=== PATIENT | female | born 1995 | race Caucasian/White ===

== ENCOUNTER 2024-01-08 09:33 | Outpatient (RCR) | payer OTHER, SELFPAY ==
[2024-01-08] MEDS: RHO(D) IMMUNE GLOBULIN 300 MCG/2 ML SYRINGE IM (13:50)
== END 2024-04-07 23:59 | disposition home or self-care (01) ==
LOC: ANHLAB 09:33
PROVIDERS: PCP Pediatrics; Visit Provider Obstetrics & Gynecology
DX: Z29.13 Encounter for prophylactic Rho(D) immune globulin (principal); O36.0190 Maternal care for anti-D [Rh] antibodies, unspecified trimester, not applicable or unspecified; Z3A.00 Weeks of gestation of pregnancy not specified
CPT/HCPCS: 36415; 85461; 86850; 86900; 86901; 90384; 96372; J2790

== ENCOUNTER 2024-03-13 07:25 | Outpatient (RCR) | payer OTHER, SELFPAY ==
[2024-03-06 11:01] VITALS: BP 129/67; PULSE 68
[2024-03-13 08:37] VITALS: BP 129/86; PULSE 91
== END 2024-03-18 17:54 | disposition home or self-care (01) ==
LOC: ANHOBOP 07:25
PROVIDERS: PCP Pediatrics; Visit Provider Obstetrics & Gynecology
DX: O26.649 Intrahepatic cholestasis of pregnancy, unspecified trimester (principal)
CPT/HCPCS: 59025

== ENCOUNTER 2024-03-16 05:03 | Inpatient (IN) | payer OTHER, SELFPAY ==
[2024-03-16] VITALS (183 sets, daily range): BP systolic 110–142; BP diastolic 61–97; PULSE 52–136; RESP 18; TEMP 36.1–37.2; O2SAT 90–100; BMI 35.0
--- NOTE | 2024-03-16 05:46 | LDADM ---
This patient, Cassy Juarez, was admitted to Labor/Delivery/Recovery 109 on 03/16/24 at 05:03. Plans for labor, pain management and were discussed with patient. Patient/family oriented to hospital policies and general routines including ID bracelet, bed and alarms, visiting hours, pain management, procedures, bathroom and other care routines, personal items, smoking policy, room service/diet and guest tray routines, security routines, and visiting hours. Patient/Family are encouraged to report perceived risks to care and to ask questions if they do not understand what they are told or what they should do. See OBIX for further documentation.
[2024-03-16 05:56] LABS: Basophils Percent Auto 0.3 % (0.2-1.2); Eosinophils Absolute Auto 0.1 K/mm3 (0-0.3); Eosinophils Percent Auto 0.9 % (0-4.4); Hematocrit 33.4 % (37.0-47.0); Immature Granulocyte Absolute 0.02 K/mm3 (0.00-0.031); Immature Granulocyte Percent A 0.2 % (0-0.5); Lymphocytes Absolute Auto 2.31 K/mm3 (0.9-3.2); Lymphocytes Percent Auto 23.2 % (18.3-44.2); Mean Corpuscular HGB Conc 32.9 g/dl (32-36); Mean Corpuscular Hemoglobin 27.6 pg (26-34); Mean Corpuscular Volume 83.7 fl (80-100); Mean Platelet Volume 12.1 fl (7.4-10.4); Monocytes Absolute Auto 0.8 K/mm3 (0.1-0.6); Monocytes Percent Auto 7.9 % (2.6-8.5); Neutrophils Absolute Auto 6.7 K/mm3 (1.3-6.7); Neutrophils Percent Auto 67.5 % (45.5-73.1); Platelet Count Result 263 k/mm3 (150-375); Red Blood Count 3.99 M/mm3 (4.2-5.4); Red Cell Distribution Width 15.1 % (11.5-14.5)
[2024-03-16] MEDS: LACTATED RINGERS 1,000 ML 125 ML IV CONT ×3 (06:22→19:05)
[2024-03-16] MEDS: OXYTOCIN 30 UNITS/NS 500 ML 30 UNITS/500 ML BAG 6 UNITS IV CONT (06:23)
--- NOTE | 2024-03-16 06:32 | PM.IMHP ---
H&P: HPI History of Present Illness Date/Time: 03/16/24 06:32 Chief Complaint: coli stasis of Narrative: 28 year para 0 last menstrual period was 06/15/2023, EDC is 03/29/2024, confirmed by 9 week ultrasound admitted for induction of labor secondary to cholestasis of . She has had reassuring testing and is negative for group B strep. She has elevated bile acids. [facility] Family History Family History Other No pertinent family history Social History Social History Smoking status: Never smoker Second hand tobacco smoke exposure: No Substance use: never Do You Feel Safe in your Home?: Yes Lack of Transportation: No Lack of Food: Never True Current Housing: I Have Housing Concerned About Future Housing: No Difficulty Paying Gas/Electric Bills: No Difficulty Paying for Meds: No Currently Unemployed: No Education: Associate Degree Difficulty w/ Childcare or Family Care: No Spiritual care concerns: No Meds Home Medications and Allergies Home Medications Medication Instructions Recorded Confirmed Type vits no.126-ferrous fum 1 tablet PO DAILY 02/28/24 02/28/24 History 28 mg iron-folic acid 800 mcg tablet (Classic ) Allergies Allergy/AdvReac Type Severity Reaction Status Date / Time No Known Allergies Allergy Verified 02/28/24 12:55 Vital Signs Vital Signs - 24 hr 03/16/24 05:03 03/16/24 05:50 03/16/24 06:00 Pulse Rate 69 64 Blood Pressure 122/79 134/78 Oxygen Delivery Room Air 03/16/24 06:15 03/16/24 06:30 Pulse Rate 69 73 Blood Pressure 117/69 131/76 Oxygen Delivery Exam Const: General: cooperative, healthy appearing, comfortable and average body habitus Orientation/consciousness: oriented to person, oriented to place and oriented to time HENMT: Head: normal to inspection Resp: Effort & Inspection: normal respiratory effort Cardio: Rate: regular rate Rhythm: regular rhythm Heart sounds: S1 normal heart sound present and S2 normal heart sound present GI: Inspection: normal to inspection ( Gravid soft uterus) : External Female Exam: normal external appearance Speculum Exam - Vagina: normal appearance of the vagina Speculum Exam - Cervix: normal appearance of the cervix ( cervix 2-350/-1. AROM clear. FHT is reassuring) H&P: Results Labs Labs: Short CBC 03/16/24 Range/Units 05:44 WBC 10.0 (4.5-10.0) K/mm3 Hgb 11.0 L (12.0-15.0) g/dL Hct 33.4 L (37.0-47.0) % Plt Count 263 (150-375) k/mm3 Assessment and Plan Assessment and plan (1) Term : Code(s): Z34.90 - Encounter for supervision of normal , unspecified, unspecified trimester Status: Acute (2) Cholestasis during : Code(s): O26.649 - Intrahepatic cholestasis of , unspecified trimester Status: Acute Assessment and Plan: medical induction of labor. Spontaneous vaginal delivery is expected. She is an epidural candidate
[2024-03-16 06:52] LABS: HIV 1/2 Ab P24 Ag Result Negative (Negative)
[2024-03-16 07:50] LABS: Rapid Plasma Reagin Non-Reactive (NonReactive)
--- NOTE | 2024-03-16 11:05 | WPDANESEPP ---
Anes - Eval Pre Procedure Procedure: Labor epidural Date/Time: 03/16/24 11:05 Surgeon: Jed Diane Preop Diagnosis: Pain during labor Pre Op Diagnosis: IOL Patient Data Age: 28 Gender: F Height: 1.57 m Weight: 87 kg Last Vital Signs Temp 36.3 C L 03/16/24 06:26 Pulse 64 03/16/24 11:00 BP 134/80 03/16/24 11:00 O2 Del Method Room Air 03/16/24 05:03 Allergies Allergy/AdvReac Type Severity Reaction Status Date / Time No Known Allergies Allergy Verified 02/28/24 12:55 Home Medications Medication Instructions Recorded Confirmed Type vits no.126-ferrous fum 1 tablet PO DAILY 02/28/24 02/28/24 History 28 mg iron-folic acid 800 mcg tablet (Classic ) Laboratory Tests 03/16/24 05:44 WBC 10.0 K/mm3 (4.5-10.0) RBC 3.99 L M/mm3 (4.2-5.4) Hgb 11.0 L g/dL (12.0-15.0) Hct 33.4 L % (37.0-47.0) MCV 83.7 fl (80-100) MCH 27.6 pg (26-34) MCHC 32.9 g/dl (32-36) RDW 15.1 H % (11.5-14.5) Plt Count 263 k/mm3 (150-375) MPV 12.1 H fl (7.4-10.4) Immature Gran % (Auto) 0.2 % (0-0.5) Neut % (Auto) 67.5 % (45.5-73.1) Lymph % (Auto) 23.2 % (18.3-44.2) [place] % (Auto) 7.9 % (2.6-8.5) Eos % (Auto) 0.9 % (0-4.4) Baso % (Auto) 0.3 % (0.2-1.2) Lymph # (Auto) 2.31 K/mm3 (0.9-3.2) [place] # (Auto) 0.8 H K/mm3 (0.1-0.6) Eos # (Auto) 0.1 K/mm3 (0-0.3) Baso # (Auto) 0.0 K/mm3 (0.0-0.1) Abs Immat Gran (auto) 0.02 K/mm3 (0.00-0.031) Absolute Neuts (auto) 6.7 K/mm3 (1.3-6.7) Absolute Nucleated RBC 0.000 K/mm3 (0.0-0.012) Nucleated RBC % 0.0 % (0.0-0.2) RPR Non-reactive (NonReactive) HIV 1&2 Ab/P24 Ag 4thGn Negative (Negative) Blood Type A Negative Antibody Screen Negative Patient hx anesthesia problems: none Family hx anesthesia problems: none Results Review: All pre-operative results and documents have been reviewed as part of the pre-operative evaluation. [facility] Family History Family History Other No pertinent family history Social History Social History Smoking status: Never smoker Second hand tobacco smoke exposure: No Substance use: never Do You Feel Safe in your Home?: Yes Lack of Transportation: No Lack of Food: Never True Current Housing: I Have Housing Concerned About Future Housing: No Difficulty Paying Gas/Electric Bills: No Difficulty Paying for Meds: No Currently Unemployed: No Education: Associate Degree Difficulty w/ Childcare or Family Care: No Spiritual care concerns: No Exam Day of Procedure 03/16/24 11:05 Patient weight: overweight Heart: regular rate and rhythm Lungs: clear to auscultation Airway: Mallampati scale class II Neurological: alert and oriented
--- NOTE | 2024-03-16 11:57 | PM.OBPNLAB ---
Pain Control Date/time seen: 03/16/24 11:57 Pain control: tolerating well and epidural Pelvic Exam Dilation (cm): 3 Effacement (%): 75 station: -2 Amniotic membrane status: Leaking Contractions Monitor mode: Internal
--- NOTE | 2024-03-16 17:56 | PM.OBPNLAB ---
Pain Control Date/time seen: 03/16/24 17:56 Pain control: tolerating well and epidural Pelvic Exam Dilation (cm): 10 Effacement (%): 100 station: 0 Amniotic membrane status: Leaking Contractions Monitor mode: Internal
--- NOTE | 2024-03-16 20:11 | PM.OBPRVD ---
OB - Vaginal Delivery Note Procedure Delivery date: 03/16/24 Events: Other ( cholestasis of ) Induction method: AROM Delivery augmentation: Pitocin Delivery monitor: External FHT and Internal Uterine Route of delivery: Episiotomy description: None Laceration Description: Perineal - 1st Degree Delivery repair: vicryl Specimen: No Quantitative Blood Loss (ml): 61 Anesthesia type: Epidural Disposition: Floor Complications: No immediate complications Narrative: patient was admitted at 38 weeks gestation with cholestasis of . Was negative for group B strep artificial rupture membranes performed in the a.m.. She progressed her 1st stage of labor which was unremarkable with epidural anesthesia which was complete she pushed and delivered the head spontaneously in the JUNITO position nuchal cord checked noted be loose x1 rubor around occiput. Anterior posterior shoulder delivered spontaneously. Cord clamped x2 and cut based passed off the table given Apgars of 8 lp1lowwml 9 pm3kmealfx. Cord blood was drawn. Placenta delivered intact spontaneously. 20units of Pitocin placed IV to help firm the uterus. After inspecting the vagina a small first-degree tear was noted and a [id number] with 0 Vicryl was placed. Blood loss was 61cc. There were no complications. Mom and baby doing fine at the time of dictation [place] Baby Date of : 03/16/24 Time of : 19:58 Gestational Age by Date: 40 gender: Female presentation: vertex position: Right Occiput Anterior Placenta delivery description: Spontaneous Cord Vessel Description: 3 Vessels, Nuchal Cord and Reduced score one minute: 8 score five minutes: 9
--- NOTE | 2024-03-16 20:14 | PM.DS ---
DS: Admitting Diagnosis Discharge Date 03/18/2024 Admitting Diagnosis term /cholestasis of DS: Discharge Diagnosis Discharge Diagnosis (1) Cholestasis during : Code(s): O26.649 - Intrahepatic cholestasis of , unspecified trimester Status: Acute (2) Term : Code(s): Z34.90 - Encounter for supervision of normal , unspecified, unspecified trimester Status: Acute DS: Summary Hospital Course Reason for hospitalization: patient was admitted for induction of labor on 03/16/2024. She underwent spontaneous vaginal delivery with epidural anesthesia Hospital Course: patient's hospital course unremarkable. She remained afebrile. She was up, voiding without difficulty, eating regular diet, ambulating, and generally without complaints. Time Spent with Patient Time attestation: Total time spent providing and/or coordinating discharge services: Exam Const: General: cooperative, healthy appearing and comfortable Nutritional Appearance: average body habitus Orientation/consciousness: oriented to person, oriented to place and oriented to time Resp: Effort & Inspection: normal respiratory effort Cardio: Rate: regular rate Rhythm: regular rhythm Heart sounds: S1 normal heart sound present and S2 normal heart sound present GI: Inspection: normal to inspection ( Fundus firm) DS: Data Data Completed and Pending Labs on day of discharge: Labs from last 24 hours 03/16/24 05:44 WBC 10.0 RBC 3.99 L Hgb 11.0 L Hct 33.4 L MCV 83.7 MCH 27.6 MCHC 32.9 RDW 15.1 H Plt Count 263 MPV 12.1 H Immature Gran % (Auto) 0.2 Neut % (Auto) 67.5 Lymph % (Auto) 23.2 [place] % (Auto) 7.9 Eos % (Auto) 0.9 Baso % (Auto) 0.3 Lymph # (Auto) 2.31 [place] # (Auto) 0.8 H Eos # (Auto) 0.1 Baso # (Auto) 0.0 Abs Immat Gran (auto) 0.02 Absolute Neuts (auto) 6.7 Absolute Nucleated RBC 0.000 Nucleated RBC % 0.0 RPR Non-reactive HIV 1&2 Ab/P24 Ag 4thGn Negative Blood Type A Negative Antibody Screen Negative Discharge Plan Discharge Attending physician on discharge: Florian Francisco Discharging Clinician: Florian Francisco Patient Disposition: Home, Self-Care Activity: may shower and pelvic rest Diet: heart healthy Wound Care Instructions: follow printed instructions Patient Instructions: Antibiotic Form Stand Alone Forms: General Discharge Information Follow-up/Referrals: Florian Francisco MD [Physician] - Discharge Medications: Continued Classic 28 mg iron- 800 mcg Tablet 1 tablet PO DAILY Date of admission: 03/16/24 05:03 Primary Care Provider: KarlosGuanakito Admitting Provider: Florian Francisco Attending physician on admission: Florian Francisco Condition: Stable
[2024-03-16] MEDS: OXYTOCIN 30 UNITS/NS 500 ML 30 UNITS/500 ML BAG 125 UNITS IV CONT (20:30)
[2024-03-16] MEDS: ACETAMINOPHEN 325 MG TABLET 650 MG PO (21:17)
--- NOTE | 2024-03-16 23:12 | OBPPTRN ---
Addendum entered by Amy Ragland RN 03/16/24 23:16: Pt brought to floor at 2231 Original Note: Patient transferred to post room #285 via wheelchair. Support person present. Oriented to unit, room, information board, rooming in, admission packet and security measures. Patient verbalizes understanding.
[2024-03-17 04:30] VITALS: BP 128/76; PULSE 77; RESP 18; TEMP 36.8; O2SAT 98
[2024-03-17 05:47] LABS: Hematocrit 30.7 % (37.0-47.0); Hemoglobin 10.1 g/dL (12.0-15.0)
--- NOTE | 2024-03-17 06:02 | PM.OBPNVD ---
OB - PN: Subj Subjective Date/time seen: 03/17/24 06:02 Patient comments: no complaints and pain well controlled baby status: doing well OB - PN: Obj Data Labs 03/17/24 04:54 Labs: Laboratory Results - last 24 hr 03/16/24 03/17/24 05:44 04:54 Hgb 10.1 L Hct 30.7 L RPR Non-reactive HIV 1&2 Ab/P24 Ag 4thGn Negative Blood Type A Negative Antibody Screen Negative OB - PN A/P Plan day: 1 Plan: routine care Time Spent With Patient Time: Total time spent is greater than 50% in coordination of care (as documented) at patient's floor/unit and/or counseling patient: Time with patient: less than 15 minutes Exam Const: General: cooperative, healthy appearing and comfortable Nutritional Appearance: average body habitus Orientation/consciousness: oriented to person, oriented to place and oriented to time Resp: Effort & Inspection: normal respiratory effort Cardio: Rate: regular rate Rhythm: regular rhythm Heart sounds: S1 normal heart sound present and S2 normal heart sound present GI: Inspection: normal to inspection
--- NOTE | 2024-03-17 06:35 | PC.NURSE ---
Addendum entered by Alexia Arechiga RN 03/17/24 12:39: admission folder given to parents. Original Note: Patient called out for assistance. Assisted mother with latching infant to the [left] breast in [cross cradle] position. [was] able to maintain an appropriate latch with use of the nipple shield. The shield was given by the nursery nurse during the first feeding. The patient has used it off and on for subsequent feeds. Mother [declines] nipple pain/discomfort [throughout feeding]. Encouraged mother to keep infant awake and nursing at the breast for 15 minutes. Reviewed using the blue feeding sheet to record time and duration of feeding as well as when we will need to initiate pumping due to nipple shield use. Mother voiced understanding of the education shared, to call for assistance if the does not latch or if there is discomfort with . name/number on communication board. Reported to the Primary RN.?
[2024-03-17] MEDS: ACETAMINOPHEN 325 MG TABLET 650 MG PO ×2 (07:14→22:49)
[2024-03-17] MEDS: DOCUSATE SODIUM 100 MG CAPSULE PO ×2 (07:14→16:48)
[2024-03-17] MEDS: DIBUCAINE 1% OINTMENT 30 GM TUBE 1 APPLIC TOPICAL (07:14)
[2024-03-17] MEDS: MULTIVIT/MIN/PREN/FOL AC/IRON TABLET 1 TAB PO (07:14)
[2024-03-17 08:22] VITALS: BP 129/76; PULSE 75; RESP 18; TEMP 37.1; O2SAT 99
--- NOTE | 2024-03-17 08:54 | WPDANLDPN2 ---
Anes-Prog Note L&D Date/Time: 03/17/24 08:54 Comfortable throughout: labor and delivery Neuraxial method: epidural Epidural/Spinal procedure site: clean & non-tender Neuro status: Neuro function grossly intact. Cardiovascular status: normal Respiratory status: normal Airway patency: baseline Mental status: baseline Post-Op hydration status: normal Vital Signs: Last Vital Signs Temp 37.1 C 03/17/24 08:22 Pulse 75 03/17/24 08:22 Resp 18 03/17/24 08:22 BP 129/76 03/17/24 08:22 Pulse Ox 99 03/17/24 08:22 O2 Del Method Room Air 03/16/24 05:03 Pain score (VAS): 3/10 I/O: Intake & Output 03/16/24 03/17/24 03/17/24 23:59 07:59 15:59 Intake Total 933.3 500 Output Total 61 Balance 872.3 500 Post-procedural complaints: none Patient feedback: Patient satisfied with anesthetic care.
--- NOTE | 2024-03-17 09:20 | PC.NURSE ---
[id number]- Observed mother latching infant to the [right] breast in [football & cradle] position. [was] able to maintain an appropriate latch without the nipple shield. struggled to latch in the cross cradle position so we tried in football. Baby was eager and trying to latch but unable, so we placed the nipple shield on and allowed baby to nurse for a few minutes. She doesn't maintain a latch very well on the nipple shield. We took off the shield and it had milk on the inside. Baby then latched to the breast without the shield. She maintained the latch off and on for about 15 minutes. She was getting sleepy and encouraged mom to burp her and offer the other breast if desired, but that baby may not take both breasts at one feeding. Mother [declines] nipple pain/discomfort other than occasional pinching which resolved with latch adjustment. Encouraged mother to keep awake and nursing at the breast for 15 minutes. Mother taught to listen for infant swallowing during feedings. Reviewed using the blue feeding sheet to record time and duration of feeding. Mother voiced understanding of the education shared, to call for assistance if the does not latch or if there is discomfort with . name/number on communication board. Reported to the Primary RN.?
[2024-03-17 11:11] VITALS: BP 129/84; PULSE 90; RESP 20; TEMP 36.5; O2SAT 99
--- NOTE | 2024-03-17 14:30 | PC.NURSE ---
Patient called out for assistance. Baby is sleepy so mom tried using the shield, and baby latched and sucked for a minute and then stopped. We moved baby away from mom to awaken her and then she was able to be eager and awake enough to latch. Mom says she really likes the football hold, it is more comfortable for her. On the right side, we latched without the nipple shield and baby was able to consistently maintain the latch. Mom does complain that the right nipple is more tender than the left. When she fed on the left independently last time, she initially used the shield but was able to remove it and baby latched 'perfectly'. Mom was very excited and encouraged that we haven't needed the shield today. Baby was a little sleepy but suckling with some stimulation. We heard some swallowing and mom will call out if there is additional assistance needed. Reported to primary RN.
[2024-03-17] MEDS: IBUPROFEN 600 MG TABLET PO ×2 (17:46→22:49)
--- NOTE | 2024-03-17 17:46 | PC.NURSE ---
Addendum entered by Alexia Arechiga RN 03/17/24 17:47: Patient called out for assistance. She had used the shield initially and then removed it and baby fed for about 8 minutes off and on. Mom was struggling to keep baby latched. We tried without success and then applied the shield to help baby latch and reorganize her sucking. She stayed latched with the shield for a few minutes and then we removed it and latched to the breast. Baby was able to maintain the latch well. Discussed with mom cluster feeding, latching to a firmer breast when her milk comes in, fussy and gassy baby when her milk is transitioning, and using the shield to assist with latch as needed. Mom and dad both ask appropriate questions and verbalize understanding of the information shared. Reported to primary RN. Original Note: Patient called out for r
[2024-03-17 21:00] VITALS: BP 133/72; PULSE 88; RESP 16; TEMP 37; O2SAT 100
[2024-03-18] MEDS: IBUPROFEN 600 MG TABLET PO (05:11)
[2024-03-18] MEDS: ACETAMINOPHEN 325 MG TABLET 650 MG PO (05:11)
--- NOTE | 2024-03-18 06:34 | PM.OBPNVD ---
OB - PN: Subj Subjective Date/time seen: 03/18/24 06:34 Patient comments: no complaints and pain well controlled baby status: doing well and nursing well OB - PN: Obj Data Labs 03/17/24 04:54 OB - PN A/P Plan day: 2 Plan: routine care, discharge home and follow up 6 weeks Time Spent With Patient Time: Total time spent is greater than 50% in coordination of care (as documented) at patient's floor/unit and/or counseling patient: Time with patient: less than 15 minutes Exam Const: General: cooperative, healthy appearing and comfortable Nutritional Appearance: average body habitus Orientation/consciousness: oriented to person, oriented to place and oriented to time Resp: Effort & Inspection: normal respiratory effort Cardio: Rate: regular rate Rhythm: regular rhythm Heart sounds: S1 normal heart sound present and S2 normal heart sound present GI: Inspection: normal to inspection
[2024-03-18 08:15] VITALS: BP 127/65; PULSE 71; RESP 16; TEMP 36.6; O2SAT 99
[2024-03-18] MEDS: MULTIVIT/MIN/PREN/FOL AC/IRON TABLET 1 TAB PO (08:43)
[2024-03-18] MEDS: INFLUENZA TRIVALENT VACCINE 45 MCG/0.5 ML SYRINGE IM (08:43)
[2024-03-18] MEDS: DOCUSATE SODIUM 100 MG CAPSULE PO (08:43)
[2024-03-18] MEDS: MEASLES,MUMPS,RUBELLA VACCINE 0.5 ML VIAL SUB-Q (08:44)
--- NOTE | 2024-03-18 10:06 | PC.NURSE ---
Patient viewed the discharge video Mother & Baby Care, The First Two Weeks . Patient was given the opportunity and encouraged to ask questions. Patient verbalized understanding of information shared and has been given the mother/baby guide for home reference.
[2024-03-20 10:28] VITALS: BP 136/72; PULSE 72; RESP 20; TEMP 36.8; O2SAT 99
== END 2024-03-18 12:47 | disposition home or self-care (01) | DRG 807 ==
LOC: ANHLDR 20:16 → ANHOB2 22:59
PROVIDERS: Admitting Provider Obstetrics & Gynecology; PCP Pediatrics; Visit Provider Obstetrics & Gynecology
DX: O26.643 Intrahepatic cholestasis of pregnancy, third trimester (principal); Z37.0 Single live birth; Z3A.38 38 weeks gestation of pregnancy; O70.0 First degree perineal laceration during delivery; O69.81X0 Labor and delivery complicated by cord around neck, without compression, not applicable or unspecified; Z23 Encounter for immunization; E78.79 Other disorders of bile acid and cholesterol metabolism
CPT/HCPCS: 36415; 59025; 85014; 85018; 85025; 86592; 86703; 86850; 86900; 86901; 90471; 90656; 90710; A9270; G0008; G0432; J2590; J2795; J7120